=== PATIENT | male | born 1965 | race Caucasian/White ===

== ENCOUNTER 2020-01-03 09:20 | Emergency (ER) | payer OTHER ==
[~2020-01-03] VITALS: Ht 180.3 cm; Wt 125.2 kg
[~2020-01-03 09:20] MED LIST: LISI10TA11 PO; METF500T PO
[2020-01-03 09:38] VITALS: BP 167/89
--- NOTE | 2020-01-03 09:43 | NUR ---
54 YO M C/O L WRIST PAIN X 2 DAYS. PT STATES THAT HE WAS WALKING TO THE RESTROOM WHEN HE TRIPPED AND LANDED ON L WRIST. PT STATES THAT HE HEARD A POPPING SOUND. IN ER, PT AOX4, WITH PORTABLE O2 - 3L VIA NC. CBS ON ALL LUNG VARELA. NO NOTABLE SWELLING OF L WRIST. ABLE TO MOVE WRIST AND WIGGLE FINGERS WITH PAIN. CR <3SECS. PT POSITIONED COMFORTABLY IN BED. ERMD MADE AWARE.
[2020-01-03] MEDS ORDERED: IBUPROFEN 400 MG TAB PO ONE (10:00)
--- NOTE | 2020-01-03 10:07 | NUR ---
PT TO XRAY VIA WHEELCHAIR
[2020-01-03 10:58] VITALS: BP 167/89
== END 2020-01-03 10:59 | disposition home or self-care (01) ==
LOC: MED 09:20
DX: M25.532 Pain in left wrist (principal); J44.9 Chronic obstructive pulmonary disease, unspecified; E11.9 Type 2 diabetes mellitus without complications; I10 Essential (primary) hypertension; Z86.73 Personal history of transient ischemic attack (TIA), and cerebral infarction without residual deficits; Z79.84 Long term (current) use of oral hypoglycemic drugs; Z79.899 Other long term (current) drug therapy
CPT/HCPCS: 73110; 99283

== ENCOUNTER 2020-10-15 12:59 | Emergency (ER) | payer OTHER ==
[~2020-10-15] VITALS: Ht 180.3 cm; Wt 129.7 kg
[2020-10-15 13:06] VITALS: BP 153/103
--- NOTE | 2020-10-15 13:33 | NUR ---
55/M BIB SELF C/O GENERALIZED RASH, HEADACHE 5/10, STUFFY NOSE X 2 DAYS. BLOOD SUGAR 178 AT THIS TIME. PMH: HEART ATTACK, STENTS,FILTER RIGHT NECK, STROKE, HTN,DM
[2020-10-15 16:09] VITALS: BP 153/103
--- NOTE | 2020-10-15 16:09 | NUR ---
PATIENT ELOPED FROM FACILITY. DISCHARGE INSTRUCTIONS NOT GIVEN TO PATIENT. NOTIFIED.
== END 2020-10-15 16:09 | disposition home or self-care (01) ==
LOC: MED 12:59
DX: L50.9 Urticaria, unspecified (principal)
CPT/HCPCS: 81002; 99281; 99282